=== PATIENT | male | born 1940 | race Caucasian/White ===

== ENCOUNTER 2020-12-15 11:28 | Emergency (ER) | payer BC, MEDICARE ==
[~2020-12-15] VITALS: Ht 182.9 cm; Wt 84.1 kg
[2020-12-15 11:57] VITALS: BP 142/85
== END 2020-12-15 14:30 | disposition home or self-care (01) ==
LOC: ER 11:28
DX: S80.02XA Contusion of left knee, initial encounter (principal); M25.462 Effusion, left knee; Z88.8 Allergy status to other drugs, medicaments and biological substances; W19.XXXA Unspecified fall, initial encounter; Y93.89 Activity, other specified; Y92.89 Other specified places as the place of occurrence of the external cause; Y99.8 Other external cause status
CPT/HCPCS: 29505; 73564; 99283

== ENCOUNTER 2023-11-15 02:15 | Inpatient (IN) | payer MEDICARE, MEDICAID ==
[2023-11-15] VITALS (8 sets, daily range): BP systolic 137–177; BP diastolic 81–95; PULSE 67–83; RESP 13–23; TEMP 97.5–98; O2SAT 93–97
[~2023-11-15] VITALS: Ht 182.9 cm; Wt 85.6 kg
[2023-11-15 03:04] LABS: BASOPHILS # (AUTO) 0.1 X10'3 (0-0.2); BASOPHILS % (AUTO) 0.6 % (0-1); EOSINOPHILS # (AUTO) 0.1 X10'3 (0-0.9); EOSINOPHILS % (AUTO) 1.1 % (0-6); HEMATOCRIT 48.4 % (42.0-52.0); HEMOGLOBIN 16.5 g/dl (14.0-17.9); LYMPHOCYTES # (AUTO) 1.8 X10'3 (1.1-4.8); LYMPHOCYTES % (AUTO) 18.9 % (21-51); MEAN CORPUSCULAR HEMOGLOBIN 33.3 PG (27.0-31.0); MEAN CORPUSCULAR HGB CONC 34.2 g/dL (33.0-36.5); MEAN CORPUSCULAR VOLUME 97.6 FL (78-98); MEAN PLATELET VOLUME 9.5 FL (7.4-10.4); MONOCYTES # (AUTO) 0.6 X10'3 (0-0.9); MONOCYTES % (AUTO) 5.8 % (2-12); NEUTROPHILS # (AUTO) 6.9 X10'3 (1.8-7.7); NEUTROPHILS % (AUTO) 73.6 % (42-75); PLATELET COUNT 135 X10'3 (140-440); RED BLOOD COUNT 4.95 X10'6 (4.70-6.10); RED CELL DISTRIBUTION WIDTH 13.7 % (11.5-14.5); WHITE BLOOD COUNT 9.4 X10'3 (4.5-11.0)
[2023-11-15 03:23] LABS: ALANINE AMINOTRANSFERASE 16 U/L (12-78); ALBUMIN 3.4 G/DL (3.4-5.0); ALBUMIN/GLOBULIN RATIO 0.9 (1.1-1.5); ALKALINE PHOSPHATASE 98 IU/L (46-116); ANION GAP 8 (8-16); ASPARTATE AMINO TRANSFERASE 9 U/L (10-37); BILIRUBIN,TOTAL 0.4 MG/DL (0.1-1.0); BLOOD UREA NITROGEN 16 MG/DL (7-18); BUN/CREATININE RATIO 18.6 (10.0-20.0); CHLORIDE 109 MMOL/L (99-107); CREATININE 0.86 MG/DL (0.60-1.10); GLUCOSE 115 MG/DL (70-104); POTASSIUM 3.3 MMOL/L (3.5-5.1); PRO BRAIN NATRIURETIC PEPTIDE 396 PG/ML (0-450); SODIUM 145 MMOL/L (135-145); TOTAL CARBON DIOXIDE 27.8 MMOL/L (24-32); TOTAL PROTEIN 7.3 G/DL (6.4-8.2); eCRCL 73 ML/MIN; eGFR 85 ML/MIN
[2023-11-15] MEDS: potassium Cl 20 mEq SR tablet PO STA (03:55)
[2023-11-15] MEDS: ipratropium/albuterol 3ml nebule NEB PRN (04:10)
[2023-11-15] MEDS ORDERED: SERT-434 PO (05:35)
[2023-11-15] MEDS ORDERED: ONDA-243 (05:35)
[2023-11-15] MEDS ORDERED: DOCU-391 PO (05:35)
[2023-11-15] MEDS ORDERED: AMLO5TAB16 PO (05:35)
[2023-11-15] MEDS ORDERED: PROP20TA6 PO (05:35)
[2023-11-15] MEDS ORDERED: POLY17PO10 (05:35)
[2023-11-15] MEDS ORDERED: potassium Cl 20 mEq SR tablet PO PRN ×2 (05:50)
[2023-11-15] MEDS ORDERED: magnesium sulf-water 4G/100mL 100 ML IV PRN (05:50)
[2023-11-15] MEDS ORDERED: magnesium sulf-water 2g/50mL 50 ML IV PRN (05:50)
[2023-11-15] MEDS ORDERED: magnesium Cl slow-release 64mg tablet PO PRN (05:50)
[2023-11-15] MEDS ORDERED: acetaminophen 650mg rectal suppository RC PRN (05:50)
[2023-11-15] MEDS ORDERED: acetaminophen 325mg tablet PO PRN (05:50)
[2023-11-15] MEDS ORDERED: bisacodyl 10mg suppository rectal RC PRN (05:50)
[2023-11-15] MEDS ORDERED: mag hydrox/Alum hydrox/simeth 30ml oral suspension PO PRN (05:50)
[2023-11-15] MEDS ORDERED: magnesium hydroxide 30ml (MOM) UD suspension PO PRN (05:50)
[2023-11-15] MEDS ORDERED: potassium Cl 40MEQ/1/2NS 520ml 520 ML IV PRN (05:50)
[2023-11-15] MEDS ORDERED: morphine 2 MG/ML inj. syringe IV PRN ×2 (05:50)
[2023-11-15] MEDS: ipratropium/albuterol 3ml nebule NEB ONE (06:30)
[2023-11-15] MEDS ORDERED: ipratropium/albuterol 3ml nebule NEB PRN (06:30)
[2023-11-15] MEDS: pantoprazole 40mg Tablet.DR PO SCH (07:30)
[2023-11-15] MEDS: K and/or MAG REPLACEMENT MC SCH (08:00)
[2023-11-15] MEDS: CefTRIAXone/D5W-Rocephin 1gm 50 ML IV SCH (08:06)
[2023-11-15] MEDS: guaiFENesin ER 600mg tablet PO SCH (08:06)
[2023-11-15] MEDS: methylPREDNISolone sod succ 125mg/2ml vial IV SCH (08:07)
[2023-11-15] MEDS: enoxaparin 40mg/0.4ml syringe SUBCUT SCH (08:07)
[2023-11-15] MEDS: methylPREDNISolone sod succ/PF 40mg inj. IV SCH ×2 (08:07→20:24)
[2023-11-15 08:15] LABS: D-DIMER 6.75 MG/L FEU (0-0.50)
[2023-11-15 08:23] LABS: MAGNESIUM 2.3 MG/DL (1.5-2.4); POTASSIUM 3.6 MMOL/L (3.5-5.1)
[2023-11-15] MEDS: ondansetron/PF 4mg/2ml inj IV PRN (08:37)
[2023-11-15] MEDS: azithromycin/NS 500mg/250ml 250 ML IV SCH (09:35)
[2023-11-15] MEDS: hydrALAZINE 20mg/ml inj. IV PRN (14:43)
[2023-11-16] VITALS (8 sets, daily range): BP systolic 124–181; BP diastolic 58–79; PULSE 56–77; RESP 16–19; TEMP 97.4–98.7; O2SAT 92–96
[2023-11-16 07:59] LABS: BASOPHILS % (AUTO) 0.1 % (0-1); EOSINOPHILS % (AUTO) 0 % (0-6); HEMATOCRIT 42.4 % (42.0-52.0); HEMOGLOBIN 14.3 g/dl (14.0-17.9); LYMPHOCYTES # (AUTO) 1.1 X10'3 (1.1-4.8); LYMPHOCYTES % (AUTO) 13.7 % (21-51); MEAN CORPUSCULAR HEMOGLOBIN 32.9 PG (27.0-31.0); MEAN CORPUSCULAR HGB CONC 33.6 g/dL (33.0-36.5); MEAN PLATELET VOLUME 9.9 FL (7.4-10.4); MONOCYTES # (AUTO) 0.3 X10'3 (0-0.9); MONOCYTES % (AUTO) 3.4 % (2-12); NEUTROPHILS # (AUTO) 6.5 X10'3 (1.8-7.7); NEUTROPHILS % (AUTO) 82.8 % (42-75); PLATELET COUNT 133 X10'3 (140-440); RED BLOOD COUNT 4.33 X10'6 (4.70-6.10); RED CELL DISTRIBUTION WIDTH 13.5 % (11.5-14.5); WHITE BLOOD COUNT 7.8 X10'3 (4.5-11.0)
[2023-11-16 08:13] LABS: ALANINE AMINOTRANSFERASE 15 U/L (12-78); ALBUMIN/GLOBULIN RATIO 0.9 (1.1-1.5); ALKALINE PHOSPHATASE 79 IU/L (46-116); ANION GAP 6 (8-16); ASPARTATE AMINO TRANSFERASE 4 U/L (10-37); BILIRUBIN,TOTAL 0.4 MG/DL (0.1-1.0); BLOOD UREA NITROGEN 28 MG/DL (7-18); BUN/CREATININE RATIO 33.7 (10.0-20.0); CALCIUM 8.7 MG/DL (8.5-10.1); CHLORIDE 110 MMOL/L (99-107); CREATININE 0.83 MG/DL (0.60-1.10); GLUCOSE 155 MG/DL (70-104); MAGNESIUM 2.1 MG/DL (1.5-2.4); POTASSIUM 3.8 MMOL/L (3.5-5.1); SODIUM 141 MMOL/L (135-145); TOTAL CARBON DIOXIDE 24.9 MMOL/L (24-32); TOTAL PROTEIN 6.5 G/DL (6.4-8.2); eCRCL 75 ML/MIN; eGFR 89 ML/MIN
[2023-11-16] MEDS ORDERED: propranolol 40mg tablet PO PRN (09:05)
[2023-11-16] MEDS ORDERED: iohexol 350MG/ML 100ml bottle IV ONE (10:17)
[2023-11-16] MEDS: nicotine 14mg patch - 24hr TD SCH (19:50)
[2023-11-17] VITALS (10 sets, daily range): BP systolic 132–181; BP diastolic 62–90; PULSE 46–84; RESP 16–20; TEMP 96.4–98.2; O2SAT 93–98
[2023-11-17 06:37] LABS: BASOPHILS % (AUTO) 0.1 % (0-1); EOSINOPHILS % (AUTO) 0 % (0-6); HEMATOCRIT 43.4 % (42.0-52.0); HEMOGLOBIN 14.9 g/dl (14.0-17.9); LYMPHOCYTES # (AUTO) 1.1 X10'3 (1.1-4.8); LYMPHOCYTES % (AUTO) 11.3 % (21-51); MEAN CORPUSCULAR HEMOGLOBIN 33.8 PG (27.0-31.0); MEAN CORPUSCULAR HGB CONC 34.5 g/dL (33.0-36.5); MEAN CORPUSCULAR VOLUME 98.1 FL (78-98); MEAN PLATELET VOLUME 9.8 FL (7.4-10.4); MONOCYTES # (AUTO) 0.3 X10'3 (0-0.9); MONOCYTES % (AUTO) 3.6 % (2-12); NEUTROPHILS # (AUTO) 8.1 X10'3 (1.8-7.7); PLATELET COUNT 130 X10'3 (140-440); RED BLOOD COUNT 4.42 X10'6 (4.70-6.10); RED CELL DISTRIBUTION WIDTH 13.3 % (11.5-14.5); WHITE BLOOD COUNT 9.6 X10'3 (4.5-11.0)
[2023-11-17 06:46] LABS: ALANINE AMINOTRANSFERASE 12 U/L (12-78); ALBUMIN 3.2 G/DL (3.4-5.0); ALBUMIN/GLOBULIN RATIO 0.9 (1.1-1.5); ALKALINE PHOSPHATASE 76 IU/L (46-116); ANION GAP 4 (8-16); ASPARTATE AMINO TRANSFERASE 5 U/L (10-37); BILIRUBIN,TOTAL 0.4 MG/DL (0.1-1.0); BLOOD UREA NITROGEN 21 MG/DL (7-18); BUN/CREATININE RATIO 32.3 (10.0-20.0); CALCIUM 8.9 MG/DL (8.5-10.1); CHLORIDE 109 MMOL/L (99-107); CREATININE 0.65 MG/DL (0.60-1.10); GLUCOSE 135 MG/DL (70-104); MAGNESIUM 2.4 MG/DL (1.5-2.4); POTASSIUM 3.6 MMOL/L (3.5-5.1); SODIUM 137 MMOL/L (135-145); TOTAL CARBON DIOXIDE 23.8 MMOL/L (24-32); TOTAL PROTEIN 6.7 G/DL (6.4-8.2); eCRCL 96 ML/MIN; eGFR > 90 ML/MIN
[2023-11-17] MEDS: sertraline 50mg tablet PO SCH (07:39)
[2023-11-17] MEDS: amLODIPine 5mg tablet PO SCH (07:39)
[2023-11-17] MEDS ORDERED: propranolol 10mg tablet PO PRN (16:24)
[2023-11-18 02:00] VITALS: BP 159/74; PULSE 47; RESP 18; TEMP 97; O2SAT 97
[2023-11-18 06:00] VITALS: BP 183/90; PULSE 56; RESP 22; TEMP 97.1; O2SAT 97
[2023-11-18 06:27] LABS: BASOPHILS % (AUTO) 0 % (0-1); EOSINOPHILS % (AUTO) 0 % (0-6); HEMATOCRIT 44.9 % (42.0-52.0); HEMOGLOBIN 15.3 g/dl (14.0-17.9); LYMPHOCYTES % (AUTO) 14.6 % (21-51); MEAN CORPUSCULAR HEMOGLOBIN 33.3 PG (27.0-31.0); MEAN CORPUSCULAR HGB CONC 34.1 g/dL (33.0-36.5); MEAN CORPUSCULAR VOLUME 97.8 FL (78-98); MEAN PLATELET VOLUME 9.9 FL (7.4-10.4); MONOCYTES # (AUTO) 0.4 X10'3 (0-0.9); MONOCYTES % (AUTO) 5.6 % (2-12); NEUTROPHILS # (AUTO) 5.6 X10'3 (1.8-7.7); NEUTROPHILS % (AUTO) 79.8 % (42-75); PLATELET COUNT 125 X10'3 (140-440); RED BLOOD COUNT 4.59 X10'6 (4.70-6.10); RED CELL DISTRIBUTION WIDTH 13.3 % (11.5-14.5); WHITE BLOOD COUNT 7.1 X10'3 (4.5-11.0)
[2023-11-18 06:37] LABS: ALANINE AMINOTRANSFERASE 14 U/L (12-78); ALBUMIN 3.1 G/DL (3.4-5.0); ALBUMIN/GLOBULIN RATIO 0.9 (1.1-1.5); ALKALINE PHOSPHATASE 70 IU/L (46-116); ANION GAP 8 (8-16); ASPARTATE AMINO TRANSFERASE 7 U/L (10-37); BILIRUBIN,TOTAL 0.5 MG/DL (0.1-1.0); BLOOD UREA NITROGEN 19 MG/DL (7-18); BUN/CREATININE RATIO 30.2 (10.0-20.0); CALCIUM 8.6 MG/DL (8.5-10.1); CHLORIDE 109 MMOL/L (99-107); CREATININE 0.63 MG/DL (0.60-1.10); GLUCOSE 125 MG/DL (70-104); MAGNESIUM 2.2 MG/DL (1.5-2.4); POTASSIUM 3.8 MMOL/L (3.5-5.1); SODIUM 142 MMOL/L (135-145); TOTAL CARBON DIOXIDE 25.5 MMOL/L (24-32); TOTAL PROTEIN 6.4 G/DL (6.4-8.2); eCRCL 99 ML/MIN; eGFR > 90 ML/MIN
[2023-11-18 08:00] VITALS: RESP 22; O2SAT 97
[2023-11-18 11:00] VITALS: BP 146/89; PULSE 60; RESP 18; TEMP 97.4; O2SAT 97
[2023-11-18 11:05] VITALS: PULSE 65; RESP 16; O2SAT 98
[2023-11-18 15:00] VITALS: BP 133/61; PULSE 53; RESP 15; TEMP 97.3; O2SAT 95
[2023-11-19] MEDS ORDERED: azithromycin 250mg tablet PO SCH (08:00)
== END 2023-11-18 17:23 | DRG 191 ==
LOC: ER 02:16 → ED HOLD 05:55 → EDBEDREQ 07:10 → PCU 3S 10:45
PROVIDERS: ADMIT Surgery Surgical Critical Care; ATTEND Internal Medicine
PROC: B32T1ZZ Computerized Tomography (CT Scan) of Left Pulmonary Artery using Low Osmolar Contrast (ICD-10-PCS; principal; 2023-11-16)
PROC: B3201ZZ Computerized Tomography (CT Scan) of Thoracic Aorta using Low Osmolar Contrast (ICD-10-PCS; 2023-11-16)
PROC: B32S1ZZ Computerized Tomography (CT Scan) of Right Pulmonary Artery using Low Osmolar Contrast (ICD-10-PCS; 2023-11-16)
DX: J44.1 Chronic obstructive pulmonary disease with (acute) exacerbation (principal); J98.11 Atelectasis; F17.210 Nicotine dependence, cigarettes, uncomplicated; Z66 Do not resuscitate; M17.12 Unilateral primary osteoarthritis, left knee; J43.9 Emphysema, unspecified; I10 Essential (primary) hypertension; Z20.822 Contact with and (suspected) exposure to COVID-19; E87.6 Hypokalemia; L89.101 Pressure ulcer of unspecified part of back, stage 1; G89.29 Other chronic pain; Z74.01 Bed confinement status; Z79.899 Other long term (current) drug therapy; Z88.5 Allergy status to narcotic agent; Z71.6 Tobacco abuse counseling
CPT/HCPCS: 36415; 71045; 71275; 73564; 80053; 83036; 83735; 83880; 84132; 84484; 85025; 85379; 87081; 87502; 87503; 87811; 93005; 93306; 94640; 94760; 97110; 97161; 97530; 97535; 99285; A6213; A6250; A6449; A6590; G0378; J0360; J0456; J0696; J1650; J2405; J2919; J7040; Q9967